=== PATIENT | female | born 1960 | race Caucasian/White ===

== ENCOUNTER 2017-01-16 09:10 | Day surgery (SDC) | payer BC ==
[2017-01-11 11:52] VITALS: BMI 31.0
--- NOTE | 2017-01-16 01:53 | P.GSHP ---
History of Present Illness H&P Date: 01/16/17 CHIEF COMPLAINT: GERD HISTORY OF PRESENT ILLNESS: The patient is a 56-year-old female who presents reports gastroesophageal reflux disease. Upper endoscopy was offered for further evaluation and management. PAST MEDICAL HISTORY: Please see list. PAST SURGICAL HISTORY: Please see list. MEDICATIONS: Please see list. ALLERGIES: Please see list. SOCIAL HISTORY: No illicit drug use FAMILY HISTORY: No reports of Crohn disease or ulcerative colitis. REVIEW OF ORGAN SYSTEMS: CONSTITUTIONAL: No reports of fevers or chills. GI: Denies any blood in stools or constipation. PHYSICAL EXAM: VITAL SIGNS: Stable GENERAL: Well-developed and pleasant in no acute distress. HEENT: No scleral icterus. Extraocular movements grossly intact. Moist buccal mucosa. NECK: Supple without lymphadenopathy. CHEST: Unlabored respirations. Equal bilateral excursions. CARDIOVASCULAR: Regular rate and rhythm. Distal 2+ pulses. ABDOMEN: Soft, nondistended. MUSCULOSKELETAL: No clubbing, cyanosis, or edema. ASSESSMENT: 1. Gastroesophageal reflux disease PLAN: 1. Recommend proceeding with an upper endoscopy Past Medical History Past Medical History: GERD/Reflux Additional Past Medical History / Comment(s): hiatal hernia History of Any Multi-Drug Resistant Organisms: None Reported Past Surgical History: Cholecystectomy, Hysterectomy, Orthopedic Surgery Additional Past Surgical History / Comment(s): lt thumb joint replacement, abdominal scar tissue surgery Past Anesthesia/Blood Transfusion Reactions: Motion Sickness, Postoperative Nausea & Vomiting (PONV) Smoking Status: Former smoker Past Alcohol Use History: Occasional Additional Past Alcohol Use History / Comment(s): smoked 3-4 years 1 pack/wk quit 30 years ago Past Drug Use History: None Reported - Past Family History Son(s) Family Medical History: Blood Disorder Medications and Allergies Home Medications Medication Instructions Recorded Confirmed Type LORazepam [Ativan] 0.25 mg PO HS 01/11/17 01/11/17 History Omeprazole [PriLOSEC] 20 mg PO DAILY 01/11/17 01/11/17 History Ranitidine HCl [Zantac] 150 mg PO HS 01/11/17 01/11/17 History rOPINIRole HCL [Requip] 1 mg PO HS 01/11/17 01/11/17 History Allergies Allergy/AdvReac Type Severity Reaction Status Date / Time shellfish derived [Shellfish] Allergy Rash/Hives Verified 01/11/17 11:36
[~2017-01-16 09:10] MED LIST: LACTATED RINGERS 1,000 ML IV SCH; LIDOCAINE 1% 20 ML VIAL (10MG/ML) FOR IV START INTRADERMA PRN
[2017-01-16 11:05] VITALS: TEMP 97.1
[2017-01-16] MEDS ORDERED: LIDOCAINE 1% 20 ML VIAL (10MG/ML) FOR IV START INTRADERMA ONE (11:11)
[2017-01-16] MEDS ORDERED: PROPOFOL 10 MG/ML 20 ML VIAL IV ONE (11:45)
[2017-01-16] MEDS ORDERED: LIDOCAINE 1% INJ 10MG/ML (20 ML MDV) ONE (11:45)
[2017-01-16 12:21] VITALS: RESP 20
[2017-01-16 12:34] VITALS: BP 108/66; PULSE 60
--- NOTE | 2017-01-16 12:37 | P.PCN ---
Date of Procedure: 01/16/17 Description of Procedure: PREOPERATIVE DIAGNOSIS: Gastroesophageal reflux disease. Hiatal hernia. POSTOPERATIVE DIAGNOSIS: Chronic gastritis. Diaphragmatic hiatal hernia. Gastroesophageal reflux disease. OPERATION: Esophagogastroduodenoscopy with biopsies along antrum. SURGEON: Charmaine Haro MD ANESTHESIA: MAC. INDICATIONS: The patient is a 56-year-old female who presents with a history of reflux disease. Benefits and risks of the procedure were described. Informed consent was obtained. DESCRIPTION: The patient was brought into the endoscopy suite and laid in the left lateral decubitus position. An Olympus gastroscope was passed along the posterior oropharynx down to the distal esophagus where the squamocolumnar junction was encountered at 35 cm from the incisors. The stomach was entered and minimal bile reflux was found. Additional findings are listed below. Biopsies with cold forceps were obtained of the antrum. The first through third portion of the duodenum was examined and unremarkable. Retroflexion of the scope confirmed Hill grade 3 lower esophageal valve. The squamocolumnar junction demostrated LA grade A erosive esophagitis. The stomach was desufflated. The patient tolerated the procedure well. FINDINGS: Squamocolumnar junction 35 cm from the incisors. Diaphragmatic hiatus at 40 cm from the incisors. Hiatal hernia, 5 cm. Hill grade 3 lower esophageal valve. LA grade A erosive esophagitis. No active duodenitis. Chronic gastritis. RECOMMENDATIONS: Continue medical therapy. Further recommendations pending results of pathology report. Upper endoscopy as needed. Plan - Discharge Summary Discharge Medication List LORazepam [Ativan] 0.25 mg PO HS 01/11/17 [History] Omeprazole [PriLOSEC] 20 mg PO DAILY 01/11/17 [History] Ranitidine HCl [Zantac] 150 mg PO HS 01/11/17 [History] rOPINIRole HCL [Requip] 1 mg PO HS 01/11/17 [History] Follow up Appointment(s)/Referral(s): Charmaine Haro MD [STAFF PHYSICIAN] - 01/30/17 2:40 pm ([place]) Patient Instructions/Handouts: *Surgery [facility] - (Anesthesia) Endoscopy Discharge Instructions, Hiatal Hernia (GEN), Gastroesophageal Reflux Disease (GEN) Activity/Diet/Wound Care/Special Instructions: Please go to [facility] outpatient for your manometry today. Discharge Disposition: HOME SELF-CARE
== END 2017-01-16 12:35 | disposition home or self-care (01) ==
LOC: ORWHC2ENDO 09:10
PROVIDERS: ATTEND Surgery Plastic and Reconstructive Surgery
DX: K29.50 Unspecified chronic gastritis without bleeding (principal); K44.9 Diaphragmatic hernia without obstruction or gangrene; K21.0 Gastro-esophageal reflux disease with esophagitis; Z87.891 Personal history of nicotine dependence; Z79.899 Other long term (current) drug therapy; Z91.013 Allergy to seafood
CPT/HCPCS: 88305; 88342; 43239; J2001; J2704

== ENCOUNTER 2017-02-04 08:53 | Inpatient (IN) | payer BC ==
[2017-02-01 08:28] VITALS: BMI 31.0
--- NOTE | 2017-02-04 07:55 | P.GSHP ---
History of Present Illness H&P Date: 02/04/17 CHIEF COMPLAINT: Paraesophageal hiatal hernia with gastroesophageal reflux disease. HISTORY OF PRESENT ILLNESS: The patient is a 56-year-old female who presents with paraesophageal hiatal hernia with regurgitation and reflux. She has completed an esophageal manometry including upper endoscopy workup. Now she presents for surgical intervention. PAST MEDICAL HISTORY: Please see list. PAST SURGICAL HISTORY: Please see list. MEDICATIONS: Please see list. ALLERGIES: Please see list. SOCIAL HISTORY: No illicit drug use FAMILY HISTORY: No reports of Crohn disease or ulcerative colitis. REVIEW OF ORGAN SYSTEMS: CONSTITUTIONAL: No reports of fevers or chills. GI: Denies any blood in stools or constipation. PHYSICAL EXAM: VITAL SIGNS: Stable GENERAL: Well-developed pleasant and in no acute distress. HEENT: No scleral icterus. Extraocular movements grossly intact. Moist buccal mucosa. NECK: Supple without lymphadenopathy. CHEST: Unlabored respirations. Equal bilateral excursions. CARDIOVASCULAR: Regular rate and rhythm. Distal 2+ pulses. ABDOMEN: Soft, nondistended. No peritoneal signs. MUSCULOSKELETAL: No clubbing, cyanosis, or edema. ASSESSMENT: 1. Diaphragmatic paraesophageal hiatal hernia with severe gastroesophageal reflux disease. 2. History of regurgitation. PLAN: 1. Recommend proceeding with a laparoscopic paraesophageal hiatal hernia with mesh and Berkley fundoplasty. 2. Benefits and risks of surgical intervention was discussed including possibility of open technique. 3. Inpatient hospitalization recommended of 2 nights or less. 4. DVT prophylaxis. 5. Antibiotic prophylaxis. Past Medical History Past Medical History: GERD/Reflux Additional Past Medical History / Comment(s): hiatal hernia History of Any Multi-Drug Resistant Organisms: None Reported Past Surgical History: Cholecystectomy, Hysterectomy, Orthopedic Surgery Additional Past Surgical History / Comment(s): lt thumb joint replacement, abdominal scar tissue surgery Past Anesthesia/Blood Transfusion Reactions: Motion Sickness, Postoperative Nausea & Vomiting (PONV) Smoking Status: Former smoker Past Alcohol Use History: Occasional Additional Past Alcohol Use History / Comment(s): smoked 3-4 years 1 pack/wk quit 30 years ago Past Drug Use History: None Reported - Past Family History Son(s) Family Medical History: Blood Disorder Medications and Allergies Home Medications Medication Instructions Recorded Confirmed Type LORazepam [Ativan] 0.5 mg PO HS 01/11/17 02/01/17 History Omeprazole [PriLOSEC] 40 mg PO QAM 01/11/17 02/01/17 History Ranitidine HCl [Zantac] 150 mg PO HS 01/11/17 02/01/17 History rOPINIRole HCL [Requip] 1 mg PO HS 01/11/17 02/01/17 History Allergies Allergy/AdvReac Type Severity Reaction Status Date / Time shellfish derived [Shellfish] Allergy Rash/Hives Verified 02/01/17 08:12
[~2017-02-04 08:53] MED LIST changes: +DEXAMETHASONE SOD PHOSPHATE 10 MG/ML 1 ML VIAL IV ONE; +HEPARIN SODIUM,PORCINE 5,000 UNIT/ML 1 ML VIAL SQ ONE; +HYDROmorphone 1 MG/ML 1 ML SYRINGE IVP PRN; +MIDAZOLAM 2 MG/2 ML VIAL IV PRN; +SCOPOLAMINE 1.5MG/72HR PATCH TRANSDERM ONE; +ceFAZolin 2 GM in SODIUM CHLORIDE 0.9% 100 ML IVPB ONE
[2017-02-04] MEDS ORDERED: LACTATED RINGERS 1,000 ML IV ONE ×2 (09:21→12:35)
[2017-02-04] MEDS: ONDANSETRON 4 MG/2 ML VIAL IVP ONE ×2 (09:41→14:32)
[2017-02-04] MEDS ORDERED: PROPOFOL 10 MG/ML 20 ML VIAL IV ONE (11:48)
[2017-02-04] MEDS ORDERED: MIDAZOLAM 2 MG/2 ML VIAL ONE (11:48)
[2017-02-04] MEDS ORDERED: LIDOCAINE 1% INJ 10MG/ML (20 ML MDV) ONE (11:48)
[2017-02-04] MEDS ORDERED: ROCURONIUM BROMIDE 10 MG/ML 10 ML VIAL IV ONE (11:48)
[2017-02-04] MEDS ORDERED: SUCCINYLCHOLINE CHLORIDE 100 MG/5 ML SYR IV ONE (11:48)
[2017-02-04] MEDS ORDERED: NEOSTIGMINE 1 MG/ML 10 ML VIAL ONE (11:48)
[2017-02-04] MEDS ORDERED: fentaNYL (PF) 50 MCG/ML 2 ML AMP ONE (11:48)
[2017-02-04] MEDS ORDERED: GLYCOPYRROLATE 0.2 MG/ML 2 ML VIAL ONE (11:48)
[2017-02-04] MEDS ORDERED: ONDANSETRON 4 MG/2 ML VIAL ONE (11:48)
[2017-02-04] MEDS ORDERED: BUPIVACAIN-EPI 0.25%-1:200,000 30 ML VIAL SQ ONE (12:30)
--- NOTE | 2017-02-04 13:55 | P.PCN ---
Date of Procedure: 02/04/17 Preoperative Diagnosis: Gastroesophageal reflux disease, regurgitation, paraesophageal hiatal hernia, obesity BMI 31.0 Postoperative Diagnosis: Same, paraesophageal hiatal hernia 5 cm Procedure(s) Performed: Laparoscopic paraesophageal hiatal hernia repair 5 cm with mesh, Berkley fundoplasty, intraoperative esophagogastroduodenoscopy biopsies along the antrum Implants: [place] Biopatch A 8 x 8 cm Anesthesia: GETA, local (60 local) Surgeon: Charmaine Haro Estimated Blood Loss (ml): 5 Pathology: other (Antrum) Condition: stable Disposition: floor Operative Findings: Hiatal hernia 5 cm repaired. Diffuse gastritis along the stomach with biopsies on the antrum obtained, after upper endoscopy hiatus repair fairly tight and suture revised along hiatus.
[2017-02-04] MEDS ORDERED: ONDANSETRON 4 MG/2 ML VIAL IVP PRN (13:56)
[2017-02-04] MEDS ORDERED: LORazepam 2 MG/ML SYRINGE IV PRN (13:58)
[2017-02-04] MEDS ORDERED: diphenhydrAMINE 50 MG/ML 1 ML VIAL IVP ONE ×2 (14:32)
[2017-02-04] MEDS ORDERED: METOCLOPRAMIDE 5 MG/ML 2 ML VIAL IVP ONE (14:47)
[2017-02-04] MEDS ORDERED: HYDROcodone/APAP 15 ML SOLUTION PO PRN (15:12)
[2017-02-04] MEDS: D5-0.45% NACL WITH KCL 20MEQ/L 1,000 ML IV SCH (15:29)
[2017-02-04 16:05] LABS: Anion Gap 14 mmol/L; Blood Urea Nitrogen 15 mg/dL (7-17); Calcium 8.8 mg/dL (8.4-10.2); Carbon Dioxide 20 mmol/L (22-30); Chloride 104 mmol/L (98-107); Glucose 151 mg/dL (74-99); Magnesium 1.7 mg/dL (1.6-2.3); Non-African American GFR(MDRD) >60 (>60 ml/min/1.73 sqM); Sodium 138 mmol/L (137-145)
[2017-02-04] MEDS: HYOSCYAMINE ORAL DROPS 1.875 MG/15 ML BOTTLE PO SCH ×2 (17:53→20:16)
[2017-02-04] MEDS: METOCLOPRAMIDE 5 MG/ML 2 ML VIAL IVP SCH (17:53)
[2017-02-04] MEDS: SIMETHICONE 40 MG/0.6 ML DROPS 2,000 MG/30 ML BOTTLE PO SCH ×2 (17:54→21:00)
[2017-02-04] MEDS: HYDROmorphone 1 MG/ML 1 ML SYRINGE IVP PRN (18:25)
[2017-02-04] MEDS: ceFAZolin 2 GM in SODIUM CHLORIDE 0.9% 100 ML IVPB SCH (20:15)
[2017-02-04] MEDS: FAMOTIDINE 20 MG/2 ML VIAL IV SCH (21:00)
[2017-02-05] MEDS: D5-0.45% NACL WITH KCL 20MEQ/L 1,000 ML IV SCH ×2 (00:22→09:28)
[2017-02-05] MEDS: HYOSCYAMINE ORAL DROPS 1.875 MG/15 ML BOTTLE PO SCH ×5 (00:24→20:42)
[2017-02-05] MEDS: METOCLOPRAMIDE 5 MG/ML 2 ML VIAL IVP SCH ×4 (00:27→18:45)
[2017-02-05] MEDS: HYDROmorphone 1 MG/ML 1 ML SYRINGE IVP PRN ×3 (00:35→15:16)
[2017-02-05] MEDS: ceFAZolin 2 GM in SODIUM CHLORIDE 0.9% 100 ML IVPB SCH (04:14)
--- NOTE | 2017-02-05 08:44 | FL ---
SINGLE CONTRAST UPPER GI EXAMINATION: CLINICAL HISTORY: 56-year-old female status post Berkley fundoplication, rule out leak/obstruction. TECHNIQUE: Single contrast exam performed with 50 ml Omnipaque 350 contrast. FINDINGS: The patient swallowed Gastrografin without difficulty or delay. Esophageal peristalsis and motility are within normal limits. There are postsurgical changes of Berkley fundoplication demonstrated below the GE junction. There is slight delay in passage of contrast from the esophagus into the stomach wi th minimal residual contrast pooled within the distal esophagus. There is no evidence of contrast ext ravasation to suggest leak. Trace free air seen below the right hemidiaphragm. IMPRESSION: No evidence of leak status post Berkley fundoplication. There is very minimal postoperative obstructio n. Trace free air on the right.
[2017-02-05] MEDS ORDERED: ENOXAPARIN 40 MG/0.4 ML SYRINGE SQ SCH (09:00)
[2017-02-05] MEDS: SIMETHICONE 40 MG/0.6 ML DROPS 2,000 MG/30 ML BOTTLE PO SCH ×3 (09:13→18:44)
[2017-02-05] MEDS: FAMOTIDINE 20 MG/2 ML VIAL IV SCH (09:14)
[2017-02-05] MEDS ORDERED: ACETAMINOPHEN TAB 325 MG TAB PO PRN (10:00)
--- NOTE | 2017-02-05 11:52 | P.DS ---
Providers Date of admission: 02/04/17 08:53 Expected date of discharge: 02/05/17 Attending physician: Charmaine Haro Primary care physician: Stated None Hospital Course: A 56-year-old female presented on elective basis to undergo treatment for a paraesophageal hiatal hernia with regurgitation and reflux. Patient had completed an esophageal manometry including an upper endoscopic workup. Patient presented for surgical intervention Laparoscopic paraesophageal hiatal hernia repair 5 cm with mesh, Berkley fundoplasty, intraoperative esophagogastroduodenoscopy biopsies along the antrum Was done on February 04. Postop there were no postop events. Patient was tolerating the clear liquid diet was anxious for discharge. Impression discharge diagnosis Gastroesophageal reflux disease, regurgitation, paraesophageal hiatal hernia Laparoscopic paraesophageal hiatal hernia repair 5 cm with mesh, Berkley fundoplasty, intraoperative esophagogastroduodenoscopy biopsies along the antrum Obesity BMI 31 History of regurgitation Severe gastroesophageal reflux disease The above dictated assessment and findings were discussed with dr muniz. Impression and the plan of care have been dictated as directed. Silvia Dias nurse practitioner acting as a scribe for dr muniz Plan - Discharge Summary Discharge Medication List LORazepam [Ativan] 0.5 mg PO HS 01/11/17 [History] Ranitidine HCl [Zantac] 150 mg PO HS 01/11/17 [History] rOPINIRole HCL [Requip] 1 mg PO HS 01/11/17 [History] Omeprazole [PriLOSEC] 40 mg PO QAM 02/04/17 [History] Acetaminophen Tab [Tylenol] 650 mg PO Q6HR PRN #0 tab 02/05/17 [Rx] Hyoscyamine Oral Drops [Levsin Drops] 0.25 mg PO Q4HR ml 02/05/17 [Rx] Simethicone 40 mg/0.6 ml Drops [Mylicon Drops] 40 mg PO QID ml 02/05/17 [Rx] Follow up Appointment(s)/Referral(s): Charmaine Haro MD [STAFF PHYSICIAN] - 02/07/17 Patient Instructions/Handouts: *[facility] - Scopalamine Patch Instructions Discharge Disposition: HOME SELF-CARE
[2017-02-05 18:26] VITALS: BP 100/69; PULSE 60; RESP 16; TEMP 98.5
[2017-02-05] MEDS ORDERED: LORazepam 0.5 MG TAB PO STA (20:29)
--- NOTE | 2017-02-05 20:32 | P.PN ---
Progress Note - Text Patient reported allergy symptoms exacerbated by weather otherwise, she is ok to go home with liquid diet for 2 weeks. Zantac and Prilosec were discontinued. Discharge instructions were reviewed.
[2017-02-05] MEDS ORDERED: MAGNESIUM SULFATE-D5W PMX 1 GM in DEXTROSE/WATER 1 100ML.BAG IVPB SCH (21:00)
--- NOTE | 2017-02-10 15:47 | P.OP ---
Date of Procedure: 02/04/17 Description of Procedure: SURGEON: ANGELA ALLEN MD IC DESIGNER CUSTOM: RITCHIE BORREGO. PREOPERATIVE DIAGNOSES: 1. Paraesophageal hiatal hernia. 2. Gastroesophageal reflux disease. 3. Regurgitation. 4. Anxiety. 5. Body mass index 31.0. 6. Anxiety. POSTOPERATIVE DIAGNOSES: 1. Paraesophageal hiatal hernia. 2. Gastroesophageal reflux disease. 3. Regurgitation. 4. Anxiety. 5. Body mass index 31.0. 6. Anxiety. 7. Gastritis. OPERATION: 1. Laparoscopic reduction of incarcerated paraesophageal hiatal hernia 5 cm without obstruction. 2. Laparoscopic diaphragmatic midline paraesophageal hiatal hernia repair Mackey Biopatch A 8 x 8 cm mesh. 3. Laparoscopic Berkley fundoplasty. 4. Intraoperative esophagogastroduodenoscopy with biopsies along the antrum. ANESTHESIA: General with 60 mL 0.25% Marcaine with epinephrine. ESTIMATED BLOOD LOSS: 5 mL. SPECIMENS REMOVED: Antrum. COMPLICATIONS: None. INDICATIONS: The patient is a 56-year-old female who presents with regurgitation including gastroesophageal reflux disease and a symptomatic midline paraesophageal diaphragmatic hernia. She completed an esophageal manometry demonstrating no evidence of esophageal dysmotility or achalasia. She had elected for surgical intervention. Benefits and risks including bleeding, infection, recurrence, dysphagia, injury to the lung, need for further surgery was described at length. Informed consent was obtained. DESCRIPTION: Patient was brought to the operating room, laid on split leg table. After general induction, the abdomen was prepped and draped in standard sterile fashion. Ioban draping was also placed. The patient had previously voided. Prior to incision, a timeout protocol was confirmed with surgical team regarding the patient's name including procedure to be performed. A left upper quadrant 0-degree 5 mm laparoscopic trocar entry was performed. The abdominal cavity was insufflated to 15 mmHg pressure which she tolerated well. Diagnostic laparoscopy demonstrated an unremarkable liver surface. Next, a 5 mm trocar was placed along the left anterior axillary line. A 5 mm trocar was placed along the epigastrium of the abdomen. A medium-sized Tish liver retractor was used to elevate the left lobe of the liver cephalad. Next, the liver retractor was held in place using an iron rn international. The patient was placed in steep reverse Trendelenburg. The gastrohepatic ligament was cleaved. Next, the phrenoesophageal ligament was mobilized and the distal esophagus was mobilized circumferentially without injury to the bilateral vagi nerves. The left and right crura was identified. Using a ruler, the hiatus was measured and the defect was consistent with 5 cm. The intra-abdominal esophageal length was approximately 3 cm. The left upper quadrant port was exchanged for a 10 mm port. The greater curvature of the stomach along the short gastrics was also mobilized using a cordless Harmonic scalpel without injury to the spleen. Once the hiatus and crura were easily identified, an Endo Stitch was placed initially with a [id number] suture to reapproximate the diaphragmatic hiatus posteriorly To buttress the repair, a Mackey Biopatch A was prepared along the back table and cut in a hernandez-hole fashion as to reinforce the repair. The mesh was placed along the crural repair and tagged using horizontal mattress sutures using 2-0 Surgidac and CovPush Computingen Endo Stitch. A Berkley fundoplasty was prepared such that the greater curvature of stomach was mobilized along the superior third of the short gastrics. A shoeshine technique demonstrated no tension or torsion along the proposed Berkley fundoplasty. Next, the first stitch from a left gastric to esophageal to right gastric bites was tied. An additional suture approximately a centimeter inferiorly was placed with gastric to gastric bites. The final fundoplasty was found to lay at the 12 o'clock position without any gastrotomy. I went to the head of the bed to perform intraoperative esophagogastroduodenoscopy and check the orifice of the hiatal closure. An Olympus gastroscope was passed through posterior oropharynx, where the GE junction was found distal to the diaphragmatic hiatus. The intra-abdominal length obtained during the case was 3 cm. The stomach was entered and bile was aspirated from the stomach. Additionally, mild gastritis was identified with biopsies identified. Retroflexion of the scope confirmed Hill grade 1 lower esophageal valve. The stomach had been desufflated. No evidence of leaks were found or mucosal defects of the esophagus or stomach. The hiatus was fairly tight. I re-scrubbed into the case. The hiatus suture was revised and loosened with a simple suture along the posterior hiatal herniorrhaphy. All instruments and pneumoperitoneum were evacuated from the abdominal cavity. Incisions were reapproximated using 4-0 Monocryl in an interrupted subcuticular fashion. A total of 60 mL 0.25% Marcaine with epinephrine was infiltrated in all wounds for postop analgesia. Multiple intra-abdominal films were obtained. The patient was taken to postanesthesia care unit in stable condition. FINDINGS: 1. A 5 cm paraesophageal diaphragmatic hiatal hernia without obstruction. 2. Esophageal intra-abdominal length of 3 cm. 3. fter upper endoscopy, hiatus repair revised. 4. Hill grade 1 lower esophageal valve. 5. Diffuse gastritis along the stomach with biopsies on the antrum obtained.
== END 2017-02-05 20:55 | disposition home or self-care (01) | DRG 328 ==
LOC: 2ORWHC 08:53 → 6PED 13:39
PROVIDERS: ADMIT Surgery Plastic and Reconstructive Surgery; ATTEND Surgery Plastic and Reconstructive Surgery
PROC: 0BUR4JZ (ICD-10-PCS; 2017-02-04)
PROC: 0DV44ZZ Restriction of Esophagogastric Junction, Percutaneous Endoscopic Approach (ICD-10-PCS; 2017-02-04)
PROC: 0DB68ZX Excision of Stomach, Via Natural or Artificial Opening Endoscopic, Diagnostic (ICD-10-PCS; 2017-02-04)
PROC: 0BUS4JZ (ICD-10-PCS; principal; 2017-02-04 11:10)
DX: K44.9 Diaphragmatic hernia without obstruction or gangrene (principal); E66.9 Obesity, unspecified; K21.9 Gastro-esophageal reflux disease without esophagitis; K29.70 Gastritis, unspecified, without bleeding; Z68.31 Body mass index [BMI] 31.0-31.9, adult; Z79.899 Other long term (current) drug therapy; Z87.891 Personal history of nicotine dependence; Z96.698 Presence of other orthopedic joint implants
CPT/HCPCS: 74210; 80048; 83735; 88305; 88342

== ENCOUNTER 2017-02-07 16:06 | Observation (INO) | payer BC ==
[2017-02-07] MEDS ORDERED: NALOXONE 0.4 MG/ML 1 ML VIAL IV PRN (16:35)
[2017-02-07] MEDS ORDERED: HYDROmorphone 1 MG/ML 1 ML SYRINGE IV PRN (16:35)
[2017-02-07] MEDS ORDERED: KETOROLAC 30 MG/ML 1 ML VIAL IVP PRN (16:35)
[2017-02-07] MEDS ORDERED: ONDANSETRON 4 MG/2 ML VIAL IVP PRN (16:35)
[2017-02-07] MEDS ORDERED: BENZOCAINE/MENTHOL LOZENG 1 EACH LOZENGE MUCOUS MEM PRN (16:35)
[2017-02-07] MEDS ORDERED: SODIUM CHLORIDE 0.9% 2,000 ML IV ONE (16:39)
--- NOTE | 2017-02-07 17:41 | XR ---
EXAMINATION TYPE: XR chest 2V DATE OF EXAM: 02/07/2017 5:35 PM COMPARISON: NONE HISTORY: Shortness of breath TECHNIQUE: Frontal and lateral views of the chest are obtained. FINDINGS: Scattered senescent parenchymal changes noted. Hyperinflation compatible with COPD. No evidence for infiltrate. No evidence for atelectasis. Heart size is stable. Mediastinal structures are stable and grossly unremarkable. No evidence for hilar prominence. Degenerative changes dorsal spine. IMPRESSION: 1. No evidence for acute pulmonary disease.
--- NOTE | 2017-02-07 17:42 | XR ---
EXAMINATION TYPE: XR abdomen 2V DATE OF EXAM: 02/07/2017 5:35 PM COMPARISON: NONE HISTORY: Pain TECHNIQUE: Single supine KUB image of the abdomen is obtained FINDINGS: Retained barium is seen within the colon. Cholecystectomy clips are in place. Small bowel demonstrates no evidence for dilatation or air fluid levels. Gas and fecal material is seen in non-distended colon. No convincing evidence for pneumoperitoneum. No unusual calcifications. The lung bases are clear. The osseous structures are intact. IMPRESSION: 1. Overall nonobstructive bowel gas pattern.
[2017-02-07] MEDS ORDERED: SCOPOLAMINE 1.5MG/72HR PATCH TRANSDERM SCH (18:00)
[2017-02-07] MEDS: METOCLOPRAMIDE 5 MG/ML 2 ML VIAL IVP SCH (18:24)
[2017-02-07 18:25] LABS: Basophils % (A) 0 %; CH 28.3; CHCM 34.3; Eosinophils # (A) 0.2 k/uL (0-0.7); Eosinophils % (A) 3 %; HCT 38.2 % (34.0-46.0); HDW 2.87; HGB 13.2 gm/dL (11.4-16.0); Luc # (Auto) 0.05; Luc % (Auto) 1; Lymphocytes % (A) 28 %; MCH 28.5 pg (25.0-35.0); MCHC 34.5 g/dL (31.0-37.0); MCV 82.6 fL (80.0-100.0); Mean Platelet Volume 7.2; Monocytes # (A) 0.2 k/uL (0-1.0); Monocytes % (A) 3 %; Neutrophils # (A) 4.6 k/uL (1.3-7.7); Neutrophils % (A) 65 %; RBC 4.63 m/uL (3.80-5.40); RDW 13.9 % (11.5-15.5); WBC 7.1 k/uL (3.8-10.6); WBC (Perox) 7.21
[2017-02-07 18:44] VITALS: BMI 30.1
[2017-02-07 18:45] LABS: ALT 59 U/L (9-52); AST 44 U/L (14-36); Alkaline Phosphatase 85 U/L (38-126); Amylase 50 U/L (30-110); Anion Gap 14 mmol/L; Blood Urea Nitrogen 12 mg/dL (7-17); Calcium 9.4 mg/dL (8.4-10.2); Carbon Dioxide 21 mmol/L (22-30); Chloride 104 mmol/L (98-107); Glucose 73 mg/dL (74-99); Non-African American GFR(MDRD) >60 (>60 ml/min/1.73 sqM); Phosphorous 3.1 mg/dL (2.5-4.5); Sodium 139 mmol/L (137-145); Total Protein 7.8 g/dL (6.3-8.2)
[2017-02-07] MEDS: SODIUM CHLORIDE 0.9% 1,000 ML IV SCH (20:21)
[2017-02-08] MEDS: METOCLOPRAMIDE 5 MG/ML 2 ML VIAL IVP SCH ×4 (00:23→18:54)
[2017-02-08] MEDS: SODIUM CHLORIDE 0.9% 1,000 ML IV SCH ×2 (02:36→08:39)
[2017-02-08 06:42] LABS: Basophils % (A) 0 %; CH 27.9; CHCM 33.4; Eosinophils # (A) 0.2 k/uL (0-0.7); Eosinophils % (A) 4 %; HDW 2.84; Luc # (Auto) 0.08; Luc % (Auto) 2; Lymphocytes # (A) 1.3 k/uL (1.0-4.8); Lymphocytes % (A) 27 %; MCH 28.8 pg (25.0-35.0); MCHC 34.4 g/dL (31.0-37.0); MCV 83.8 fL (80.0-100.0); Mean Platelet Volume 7.6; Monocytes # (A) 0.2 k/uL (0-1.0); Monocytes % (A) 5 %; Neutrophils % (A) 63 %; RBC 3.82 m/uL (3.80-5.40); RDW 13.9 % (11.5-15.5); WBC 4.8 k/uL (3.8-10.6); WBC (Perox) 5.02
[2017-02-08 06:58] LABS: Anion Gap 11 mmol/L; Blood Urea Nitrogen 11 mg/dL (7-17); Calcium 8.2 mg/dL (8.4-10.2); Carbon Dioxide 17 mmol/L (22-30); Chloride 112 mmol/L (98-107); Glucose 56 mg/dL (74-99); Magnesium 1.9 mg/dL (1.6-2.3); Non-African American GFR(MDRD) >60 (>60 ml/min/1.73 sqM); Phosphorous 3.4 mg/dL (2.5-4.5); Potassium 3.8 mmol/L (3.5-5.1); Sodium 140 mmol/L (137-145)
[2017-02-08] MEDS ORDERED: PANTOPRAZOLE 40 MG/10 ML VIAL IV SCH (09:00)
--- NOTE | 2017-02-08 10:23 | P.GSHP ---
History of Present Illness H&P Date: 02/08/17 A 56 year old female presented with a chief complaint of developing persistent vomiting clear secretions with a pressure sensation mid chest. Patient stated after vomiting the discomfort would go away. She states this started after being discharged from the hospital on February 05. Patient recently underwent a laparoscopic Esophageal hiatal hernia repair, Berkley fundoplasty for treatment of a periesophageal hiatal hernia with regurgitation and reflux Patient states that she was discharged on the second in the evening went home started on clear liquid and became nauseated the episode started to occur could not keep liquids down presented on the February 07 to be evaluated for the above-mentioned symptoms. Currently patient is being seen is denying chest pain shortness of breath or difficulty in swallowing. Patient states she has not had anything to drink or eat since 11:00 last night has not had any further episodes. The chest x-ray obtained on the showed no acute pulmonary disease abdominal x-ray KUB showed overall nonobstructive gas bowel pattern no acute findings labs were reviewed the white count on admission 7.1 hemoglobin 13.2 electrolyte within normal limits AST and ALT mildly elevated amylase and lipase within normal limits - Review of Systems Comment: Essentially unremarkable except as mentioned in the present illness Past Medical History Past Medical History: GERD/Reflux Additional Past Medical History / Comment(s): hiatal hernia History of Any Multi-Drug Resistant Organisms: None Reported Past Surgical History: Cholecystectomy, Hysterectomy, Orthopedic Surgery Additional Past Surgical History / Comment(s): lt thumb joint replacement, abdominal scar tissue surgery Past Anesthesia/Blood Transfusion Reactions: Motion Sickness, Postoperative Nausea & Vomiting (PONV) Past Psychological History: Anxiety Additional Psychological History / Comment(s): ativan taken at home Smoking Status: Never smoker Past Alcohol Use History: Occasional Additional Past Alcohol Use History / Comment(s): smoked 3-4 years 1 pack/wk quit 30 years ago Past Drug Use History: None Reported - Past Family History Son(s) Family Medical History: Blood Disorder Additional Family Medical History / Comment(s): doesnt clot well Medications and Allergies Home Medications Medication Instructions Recorded Confirmed Type LORazepam [Ativan] 0.5 mg PO HS 01/11/17 02/07/17 History rOPINIRole HCL [Requip] 1 mg PO HS 01/11/17 02/07/17 History Allergies Allergy/AdvReac Type Severity Reaction Status Date / Time shellfish derived [Shellfish] Allergy Rash/Hives Verified 02/07/17 18:29 Surgical - Exam Vital Signs Temp Pulse Resp BP Pulse Ox 97.7 F 72 16 116/74 99 02/07/17 17:45 02/07/17 17:45 02/07/17 17:45 02/07/17 17:45 02/07/17 17:45 GENERAL APPEARANCE: 56-year-old female patient is alert, oriented, in . Sitting up in bed pleasant cooperative does not appear in any acute distress denying chest pain shortness of breath VITAL SIGNS: Reviewed HEENT: Head is normocephalic and atraumatic. Pupils are equal and reactive. The nares are patent. Oropharynx is clear without lesions. NECK: Supple without lymphadenopathy. Traches midline. HEART: S1, S2. Regular rate and rhythm. No murmur noted LUNGS: No crackles or wheezes are heard. Adequate air movement bilaterally on room air sats are 100% no cough noted ABDOMEN: Soft, nontender, nondistended with good bowel sounds. No peritoneal signs. No palpable organomegaly or masses. Currently denying any epigastric pain any abdominal pain denies any chest pressure EXTREMITIES: Normal skin color and turgor. No cyanosis, rash, ulceration, clubbing or edema. Radial pedal pulses are 2/4 bilaterally. NEUROLOGICAL: No focal deficits. Strength and sensation are grossly intact. Results - Labs 02/08/17 05:58 02/08/17 05:58 Abnormal Lab Results - Last 24 Hours (Table) 02/07/17 02/08/17 02/08/17 Range/Units 18:15 05:58 05:58 Hgb 11.0 L (11.4-16.0) gm/dL Hct 32.0 L (34.0-46.0) % Chloride 112 H (98-107) mmol/L Carbon Dioxide 21 L 17 L (22-30) mmol/L Glucose 73 L 56 L (74-99) mg/dL Calcium 8.2 L (8.4-10.2) mg/dL AST 44 H (14-36) U/L ALT 59 H (9-52) U/L Diabetes panel 02/07/17 02/08/17 Range/Units 18:15 05:58 Sodium 139 140 (137-145) mmol/L Potassium 4.0 3.8 (3.5-5.1) mmol/L Chloride 104 112 H (98-107) mmol/L Carbon Dioxide 21 L 17 L (22-30) mmol/L BUN 12 11 (7-17) mg/dL Creatinine 0.65 0.62 (0.52-1.04) mg/dL Glucose 73 L 56 L (74-99) mg/dL Calcium 9.4 8.2 L (8.4-10.2) mg/dL AST 44 H (14-36) U/L ALT 59 H (9-52) U/L Alkaline Phosphatase 85 (38-126) U/L Total Protein 7.8 (6.3-8.2) g/dL Albumin 4.5 (3.5-5.0) g/dL Calcium panel 02/07/17 02/08/17 Range/Units 18:15 05:58 Calcium 9.4 8.2 L (8.4-10.2) mg/dL Phosphorus 3.1 3.4 (2.5-4.5) mg/dL Albumin 4.5 (3.5-5.0) g/dL Pituitary panel 02/07/17 02/08/17 Range/Units 18:15 05:58 Sodium 139 140 (137-145) mmol/L Potassium 4.0 3.8 (3.5-5.1) mmol/L Chloride 104 112 H (98-107) mmol/L Carbon Dioxide 21 L 17 L (22-30) mmol/L BUN 12 11 (7-17) mg/dL Creatinine 0.65 0.62 (0.52-1.04) mg/dL Glucose 73 L 56 L (74-99) mg/dL Calcium 9.4 8.2 L (8.4-10.2) mg/dL Adrenal panel 02/07/17 02/08/17 Range/Units 18:15 05:58 Sodium 139 140 (137-145) mmol/L Potassium 4.0 3.8 (3.5-5.1) mmol/L Chloride 104 112 H (98-107) mmol/L Carbon Dioxide 21 L 17 L (22-30) mmol/L BUN 12 11 (7-17) mg/dL Creatinine 0.65 0.62 (0.52-1.04) mg/dL Glucose 73 L 56 L (74-99) mg/dL Calcium 9.4 8.2 L (8.4-10.2) mg/dL Total Bilirubin 1.0 (0.2-1.3) mg/dL AST 44 H (14-36) U/L ALT 59 H (9-52) U/L Alkaline Phosphatase 85 (38-126) U/L Total Protein 7.8 (6.3-8.2) g/dL Albumin 4.5 (3.5-5.0) g/dL Assessment and Plan Plan: Impression Recent February second laparoscopic. Esophageal hiatal hernia repair with mesh, Berkley fundoplasty, interoperative EGD biopsies for treatment. Esophageal hiatal hernia with regurgitation and reflux Anxiety disorder nonspecified Severe gastroesophageal reflux disease Obesity BMI 31 Episode of nausea vomiting postprocedure unclear etiology Plan Resume home meds as appropriate DVT and GI prophylaxis IV fluid for hydration Start Berkley clear liquid diet monitor the response Further recommendations pending The above dictated assessment and findings were discussed with dr olguin. Impression and the plan of care have been dictated as directed. Silvia Dias nurse practitioner acting as a scribe for dr olguin
[2017-02-08] MEDS ORDERED: DEXAMETHASONE SOD PHOSPHATE 10 MG/ML 1 ML VIAL IV STA (11:04)
[2017-02-08] MEDS ORDERED: ACETAMINOPHEN TAB 325 MG TAB PO PRN (11:05)
[2017-02-08] MEDS: LORATADINE-PSEUDOEPH 5-120 MG 1 EACH TAB.ER.12H PO SCH ×2 (13:10→20:29)
[2017-02-08] MEDS: HYOSCYAMINE ORAL DROPS 1.875 MG/15 ML BOTTLE PO SCH ×2 (13:11→18:51)
[2017-02-08 15:59] VITALS: BP 116/69; PULSE 68; RESP 19; TEMP 98.6
[2017-02-08] MEDS: SIMETHICONE 40 MG/0.6 ML DROPS 2,000 MG/30 ML BOTTLE PO SCH ×3 (16:15→20:30)
[2017-02-08] MEDS ORDERED: ONDANSETRON 4 MG TAB PO PRN (18:40)
--- NOTE | 2017-02-08 19:11 | P.DS ---
Providers Date of admission: 02/07/17 17:23 Expected date of discharge: 02/08/17 Attending physician: Charmaine Haro Primary care physician: Stated None - Discharge Diagnosis(es) (1) Dehydration Current Visit: Yes Status: Acute (2) Nausea & vomiting Current Visit: Yes Status: Acute (3) History of repair of hiatal hernia Current Visit: Yes Status: Acute (4) Anxiety Current Visit: Yes Status: Acute (5) Seasonal allergies Current Visit: Yes Status: Acute Hospital Course: The patient is a 56-year-old female who was brought to the hospital for concerns of esophageal obstruction. Her history is significant for recent hiatal hernia repair, 02/04/17. She reports going home and developing chronic cough with subsequent edema, epigastric abdominal pain and difficulty swallowing. She then developed acute dehydration with intractable nausea and vomiting hence her admission. She was conservatively managed with IV fluid hydration including schedule antiemetics. Prior to discharge she was able to tolerate liquids without any symptoms of dysphagia. Her nausea was controlled. Post Berkley diet instructions including 2 weeks of liquid diet was advised. Follow-up in the office within 5 days reviewed. Vital Signs Temp 98.6 F 02/08/17 15:59 Pulse 68 02/08/17 15:59 Resp 19 02/08/17 15:59 BP 116/69 02/08/17 15:59 Pulse Ox 94 L 02/08/17 15:59 Intake & Output 02/08/17 02/08/17 02/09/17 06:59 18:59 06:59 Intake Total 400 Output Total 580 550 Balance -580 -150 Intake: Oral 400 Output: Urine 350 550 Emesis 230 Other: Voiding Method Toilet Toilet # Voids 50 # Bowel Movements 1 # Emeses 4 GENERAL: Well developed and in no acute distress. Pleasant. HEENT: No sclera icterus. Extraocular movements grossly intact. Moist buccal mucosa. Head is atraumatic, normocephalic. Hears conversational speech. No nasal drainage. NECK: Supple without lymphadenopathy. No JV distention. CHEST: Non-labored respirations and equal bilateral excursions. CARDIOVASCULAR: Regular rate and rhythm. Palpable 2+ radial pulses. ABDOMEN: Soft, nontender. Nondistended. MUSCULOSKELETAL: No clubbing, cyanosis or edema. NEUROLOGIC: No focal or lateralizing signs. PSYCH: Appropriate affect. Alert and oriented to person, place and time. Pertinent Studies: Chest x-ray unremarkable. Abdominal x-ray unremarkable. Procedures: None. Patient Condition at Discharge: Good Plan - Discharge Summary New Discharge Prescriptions: Ondansetron Odt [Zofran Odt] 4 mg PO Q8HR PRN #10 tab PRN Reason: Nausea And Vomiting Discharge Medication List LORazepam [Ativan] 0.5 mg PO HS 01/11/17 [History] rOPINIRole HCL [Requip] 1 mg PO HS 01/11/17 [History] Acetaminophen Tab [Tylenol] 650 mg PO Q6HR PRN #0 tab 02/05/17 [Rx] Hyoscyamine Oral Drops [Levsin Drops] 0.25 mg PO Q4HR ml 02/05/17 [Rx] Simethicone 40 mg/0.6 ml Drops [Mylicon Drops] 40 mg PO QID ml 02/05/17 [Rx] Ondansetron Odt [Zofran Odt] 4 mg PO Q8HR PRN #10 tab 02/08/17 [Rx] Follow up Appointment(s)/Referral(s): Charmaine Haro MD [STAFF PHYSICIAN] - 02/12/17 Patient Instructions/Handouts: Ondansetron (By mouth) Activity/Diet/Wound Care/Special Instructions: No lifting or 4 pounds in 4 weeks. Take antinausea medication as needed. Discharge Disposition: HOME SELF-CARE
[2017-02-08] MEDS ORDERED: LORazepam 0.5 MG TAB PO SCH (21:00)
== END 2017-02-08 20:42 | disposition home or self-care (01) ==
LOC: 6PED 17:23
PROVIDERS: ADMIT Surgery Plastic and Reconstructive Surgery; ATTEND Surgery Plastic and Reconstructive Surgery
DX: E86.0 Dehydration (principal); R05 Cough; R10.13 Epigastric pain; R13.10 Dysphagia, unspecified; R11.2 Nausea with vomiting, unspecified; F41.9 Anxiety disorder, unspecified; J30.2 Other seasonal allergic rhinitis; Z98.890 Other specified postprocedural states; E66.9 Obesity, unspecified; Z68.31 Body mass index [BMI] 31.0-31.9, adult; Z79.899 Other long term (current) drug therapy; K21.9 Gastro-esophageal reflux disease without esophagitis; Z90.49 Acquired absence of other specified parts of digestive tract; R79.89 Other specified abnormal findings of blood chemistry; Z91.013 Allergy to seafood
CPT/HCPCS: 96361 ×3; 96374; 80053; 80048; 82150; 83690; 83735 ×2; 84100 ×2; 85025 ×2; 71020; 74020; G0378 ×2; G0379; J1100; J2765 ×2; J1885; C9113

== ENCOUNTER → 2022-09-28 | Outpatient (CLI) | payer BC ==
--- NOTE | 2022-09-28 14:49 | MR ---
EXAMINATION TYPE: MR knee RT wo con DATE OF EXAM: 09/28/2022 COMPARISON: NONE HISTORY: Right knee pain S/P injury 2 days ago. Tear of the medial meniscus. TECHNIQUE: Multiplanar, multisequence images of the knee is performed without IV contrast. FINDINGS: MEDIAL MENISCUS: Increased faint signal centrally posterior horn does not extend to articular surface . LATERAL MENISCUS: Anterior and posterior horns are intact without tear. CRUCIATE LIGAMENTS: The anterior and posterior cruciate ligaments are intact and unremarkable. COLLATERAL LIGAMENTS: The medial collateral ligament and lateral collateral ligament complex are inta ct and unremarkable. EXTENSOR MECHANISM: Visualized quadriceps and patellar tendons are intact. EFFUSION: [id number] sized suprapatellar joint effusion. POPLITEAL CYST: Small to moderate size popliteal/elizabeth cyst sagittal image 9. TRICOMPARTMENT SPACES: Moderate narrowing patellofemoral compartment. No significant spurring. CARTILAGE: Chondromalacia patella with cartilaginous loss along posterior patellar pole BONE MARROW SIGNAL: No focal abnormal marrow signal is appreciated. OTHER: No additional significant abnormality is appreciated. IMPRESSION: 1. Intrasubstance tear posterior horn medial meniscus is suspected, no full-thickness meniscal tear. 2. Small to moderate size suprapatellar joint effusion. 3. Oguwt-ap-fokhisqd sized popliteal cyst. 4. 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
== END | disposition home or self-care (01) ==
LOC: RADMRIMAIN 13:27
PROVIDERS: ATTEND Orthopaedic Surgery
DX: S83.241A Other tear of medial meniscus, current injury, right knee, initial encounter (principal); M71.21 Synovial cyst of popliteal space [Baker], right knee; M25.461 Effusion, right knee